=== PATIENT | female | born 1955 | race Caucasian/White ===

== ENCOUNTER 2016-04-04 11:23 | Day surgery (SDC) | payer OTHER ==
[2016-04-02 12:19] VITALS: BMI 32.8
--- NOTE | 2016-04-04 11:18 | P.GSHP ---
History of Present Illness H&P Date: 04/04/16 [facility] 60 yrs old female referred by PCP for infected sebaceous cyst lower abdomen. On Bactrim po ROS ROS as noted in the HPI Physical Exam Patient is a 60-year-old female. Constitutional: General Appearance: healthy-appearing, well-nourished, and well- developed. Level of Distress: NAD. Ambulation: ambulating normally. Psychiatric: Insight: good judgement. Orientation: to time, place, and person. Head: Head: normocephalic and atraumatic. Eyes: Lids and Conjunctivae: no discharge or pallor and non-injected. Sclerae: non-icteric. ENMT: Oropharynx: moist mucous membranes. Abdomen: Bowel Sounds: normal. Inspection and Palpation: no tenderness or guarding and soft and non-distended; Lower abdomen infected sebaceous cyst. Musculoskeletal:: Motor Strength and Tone: normal and normal tone. Joints, Bones , and Muscles: normal movement of all extremities. Extremities: no cyanosis or edema. Neurologic: Gait and Station: normal gait and station. Cranial Nerves: grossly intact. Assessment / Plan 1. Continue po antibiotics 2. Excision in OR 3. Risks, benefits and potential complications explained including bleeding, infection and open surgical wound. 4. Ancef 2gm IVPBx1 5. Bilateral SCDS 1. Infected sebaceous cyst L72.3: Sebaceous cyst Past Medical History Past Medical History: Hypertension, Osteoarthritis (OA) Additional Past Medical History / Comment(s): KIDNEY STONES History of Any Multi-Drug Resistant Organisms: None Reported Past Surgical History: Cholecystectomy, Hysterectomy, Orthopedic Surgery Additional Past Surgical History / Comment(s): TOTAL RT KNEE REPLACEMENT Past Anesthesia/Blood Transfusion Reactions: No Reported Reaction Past Psychological History: No Psychological Hx Reported Smoking Status: Never smoker Past Alcohol Use History: None Reported Past Drug Use History: None Reported - Past Family History Mother Family Medical History: No Reported History Medications and Allergies Home Medications Medication Instructions Recorded Confirmed Type Atenolol [Tenormin] 100 mg PO DAILY 08/24/15 04/02/16 History Calcium Carbonate/Vitamin D3 1 tab PO DAILY 08/24/15 04/02/16 History [Calcium 600-Vit D3 200 Tablet] Loratadine [Claritin] 10 mg PO HS 08/24/15 04/02/16 History Multivitamins, Thera [Multivitamin] 1 tab PO DAILY 08/24/15 04/02/16 History Potassium Chloride [K-Tab ER] 20 meq PO DAILY 08/24/15 04/02/16 History amLODIPine BESYLATE [Norvasc] 5 mg PO DAILY 08/24/15 04/02/16 History Losartan/Hydrochlorothiazide 1 tab PO DAILY 04/02/16 04/02/16 History [Hyzaar 100-25 Tablet] Allergies Allergy/AdvReac Type Severity Reaction Status Date / Time No Known Allergies Allergy Verified 04/02/16 12:05
[~2016-04-04 11:23] MED LIST: DEXAMETHASONE SOD PHOSPHATE 10 MG/ML 1 ML VIAL IV ONE; HYDROmorphone 1 MG/ML 1 ML SYRINGE IVP PRN; LACTATED RINGERS 1,000 ML IV SCH; ONDANSETRON 4 MG/2 ML VIAL IVP ONE; Pre Op ABX Message 1 EACH MISC MISCELLANE ONE
[2016-04-04 12:04] VITALS: RESP 16; TEMP 97.5
[2016-04-04] MEDS ORDERED: LIDOCAINE 1% 20 ML VIAL (10MG/ML) FOR IV START INTRADERMA ONE (12:04)
[2016-04-04] MEDS ORDERED: METOPROLOL TARTRATE 5 MG/5 ML VIAL IVP ONE (12:09)
[2016-04-04] MEDS ORDERED: HEPARIN SODIUM,PORCINE 5,000 UNIT/ML 1 ML VIAL SQ ONE (13:20)
[2016-04-04] MEDS ORDERED: fentaNYL (PF) 50 MCG/ML 2 ML AMP ONE (13:43)
[2016-04-04] MEDS ORDERED: MIDAZOLAM 2 MG/2 ML VIAL ONE (13:43)
[2016-04-04] MEDS ORDERED: PROPOFOL 10 MG/ML 20 ML VIAL IV ONE (13:43)
[2016-04-04] MEDS ORDERED: BUPIVACAIN-EPI 0.25%-1:200,000 30 ML VIAL SQ ONE ×2 (13:56)
[2016-04-04 14:56] VITALS: BP 125/77; PULSE 70
--- NOTE | 2016-04-06 12:40 | P.OP ---
Date of Procedure: 04/04/16 Preoperative Diagnosis: Infected anterior abdominal wall cyst Obesity BMI 32.8 Postoperative Diagnosis: Same Procedure(s) Performed: Excision of anterior abdominal wall cyst Anesthesia: MAC, local Surgeon: Shirin Lovett Pathology: other Condition: stable Disposition: PACU Indications for Procedure: 60 years old female presented with redness and drainage from the right anterior abdominal wall cyst. She was treated with oral antibiotics and responded well. She now presents to the OR for complete excision of the cyst wall. The risks , benefits and potential complications were explained patient did undergo the procedure Operative Findings: Small sebaceous cyst Description of Procedure: The patient was brought to the operating room and placed in supine position with both arms out. IV sedation was given as per anesthesia team. A timeout was performed to verify correct patient, correct procedure and correct site. Patient was confirmed to receive perioperative IV antibiotics. A 3 x 2 x 2 elliptical skin incision was made and this was deepened to the subcutaneous tissue. The cyst was infected and had drained . The remainder of the cyst wall was completely excised using Bovie electrocautery. The resulting defect measured and was closed in 2 layers. Dermabond skin glue was applied The patient tolerated the procedure well and was taken to postanesthesia care unit in stable condition Final Pathologic Diagnosis SKIN AND SOFT TISSUE, EXCISION: KERATINOUS CYST WITH FIBROADIPOSE TISSUE DEMONSTRATING FIBROSIS, FIBROPLASIA, VASCULAR PROLIFERATION, CHRONIC INFLAMMATION AND FOCAL FAT NECROSIS. FOCAL BENIGN SKIN.
== END 2016-04-04 15:19 | disposition home or self-care (01) ==
LOC: OR 11:23
PROVIDERS: ATTEND Surgery
DX: L72.3 Sebaceous cyst (principal); L90.5 Scar conditions and fibrosis of skin; L08.9 Local infection of the skin and subcutaneous tissue, unspecified; M79.89 Other specified soft tissue disorders; I10 Essential (primary) hypertension; E66.9 Obesity, unspecified; Z68.32 Body mass index [BMI] 32.0-32.9, adult; Z79.899 Other long term (current) drug therapy
CPT/HCPCS: 22903; 88304; J2250; J1644; J1100; J2405; J3010; J2704; 99152; 99153